=== PATIENT | male | born 1950 | race Caucasian/White ===

== ENCOUNTER → 2019-12-15 | Outpatient (CLI) | payer MEDICARE ==
[~2019-12-15] MED LIST: ASPI-496 PO; ASPI-515 PO; ATOR-2 PO; CEFD300C37 PO; CLOP75TA PO; DEXA4TAB66 PO; DOCU-131 PO; DOXY100T PO; FOLI-17 PO; FURO-93 PO; GABA100C PO; METO25TA35 PO; METO50TA82 PO; OXYC5CAP2 PO; PANT20TA3 PO; PANT40TA5 PO; POTA10TA11 PO; THIA100T67 PO
[2019-12-15 11:29] LABS: MEAN CORPUSCULAR HEMOGLOBIN 28.4 pg (27.5-34.5); MEAN CORPUSCULAR VOLUME 88.7 fL (81-97); MEAN PLATELET VOLUME 8.9 fL (7.4-10.4); PLATELET COUNT 236 x10^3/uL (130-400); RED BLOOD COUNT 3.78 x10^6/uL (4.38-5.82); RED CELL DISTRIBUTION WIDTH 23.4 % (9.4-14.8)
[2019-12-15 11:39] LABS: ALBUMIN 3.5 g/dL (3.4-5.0); ANION GAP 8 mmol/L (5-15); CALCIUM 9.1 mg/dL (8.5-10.1); CHLORIDE 113 mmol/L (98-107)
[2019-12-15 11:42] LABS: ALANINE AMINOTRANSFERASE 19 U/L (12-78); ALKALINE PHOSPHATASE 147 U/L (45-117); BILIRUBIN,TOTAL 0.8 mg/dL (0.2-1.0); TOTAL PROTEIN 7.6 g/dL (6.4-8.2)
[2019-12-15 11:56] LABS: BASOPHILS # (AUTO) 0.02 x10^3/uL (0-0.1); BASOPHILS % (AUTO) 0 % (0-1); EOSINOPHILS # (AUTO) 0.19 x10^3/uL (0-0.4); EOSINOPHILS % (AUTO) 2 % (1-7); LYMPHOCYTES # (AUTO) 1.92 x10^3/uL (1-3.4); LYMPHOCYTES % (AUTO) 19 % (22-44); MD SCAN; MONOCYTES # (AUTO) 0.56 x10^3/uL (0.2-0.8); MONOCYTES % (AUTO) 5 % (2-9); NEUTROPHILS # (AUTO) 7.62 x10^3/uL (1.8-6.8); NEUTROPHILS % (AUTO) 74 % (42-75)
== END | disposition home or self-care (01) ==
LOC: STAR 10:18
PROVIDERS: ATTEND Thoracic Surgery (Cardiothoracic Vascular Surgery)
DX: Z01.818 Encounter for other preprocedural examination (principal); I25.2 Old myocardial infarction
CPT/HCPCS: 36415; 80053; 85025; 93005

== ENCOUNTER 2019-12-30 17:55 | Emergency (ER) | payer MEDICARE ==
[~2019-12-30] VITALS: Ht 177.8 cm; Wt 76.2 kg
--- NOTE | 2019-12-30 18:15 | NUR ---
COMMERCIAL AGENT: CODE BLUE CALL SLEEP TECHNOLOGIST.
[2019-12-30] MEDS ORDERED: EPINEPHRINE SYRINGE 0.1 MG/ML, 10ML ONE (18:40)
[2019-12-30] MEDS ORDERED: CODE BLUE RESPONSE XX ONE (18:40)
--- NOTE | 2019-12-30 18:59 | NUR ---
Mitchell from [facility] called and states that they are no longer following this patient for tissue donation and can be released to investments manager.
--- NOTE | 2019-12-30 19:07 | NUR ---
TALKED WITH MARINA ([phone]). NO MORTUARY DECISION AT THIS TIME. DISCUSSED CASE WITH [employer]ER (SEE PAPER) NOT A CASE. DENIED FOR ORGAN REFFERAL(SEE PAPER)
== END 2019-12-30 22:05 | disposition expired ==
LOC: ED 21:59
DX: I46.9 Cardiac arrest, cause unspecified (principal); Z85.028 Personal history of other malignant neoplasm of stomach
CPT/HCPCS: 31500; 92950; 99285